=== PATIENT | male | born 1940 | race Two or more races ===

== ENCOUNTER 2017-04-26 21:52 | Inpatient (IN) | payer OTHER, MEDICAID ==
[~2017-04-26] VITALS: Ht 165.1 cm; Wt 71.0 kg
[2017-04-26 23:34] LABS: Basophils # (auto) 0 uL; Basophils % (auto) 0.2 % (0.0-2.0); Eosinophils # (auto) 0.2 uL; Eosinophils % (auto) 1.9 % (0.0-7.0); Hematocrit 44.6 % (41.0-53.0); Hemoglobin 15.3 g/dL (13.5-17.5); Lymphocytes # (auto) 1.5 uL; Lymphocytes % (auto) 18.2 % (10.0-50.0); Mean Corpuscular Hemoglobin 31.2 pg (28.0-32.0); Mean Corpuscular Hgb Conc. 34.3 g/dL (32.0-36.0); Mean Corpuscular Volume 90.9 fL (80.0-100.0); Monocytes # (auto) 0.5 uL; Monocytes % (auto) 6.5 % (0.0-12.0); Neutrophils % (auto) 73.2 % (37.0-80.0); Nucleated Red Blood Cells % 0.1 %; Platelet Count (auto) 192 10^3/uL (140-450); Red Blood Cells 4.91 10^6/uL (4.5-5.90); White Blood Cell 8.2 10^3/uL (4.4-10.8)
[2017-04-26 23:46] LABS: INR 1.05 (0.9-1.15); Partial Thromboplastin Time 26.8 sec (22.64-33.71); Prothrombin Time 11.5 sec (9.37-12.3)
[2017-04-27 00:03] LABS: Albumin 3.8 g/dL (3.4-5.0); BUN/Creatinine Ratio 20.9; Bilirubin, Total 0.4 mg/dL (0.2-1.0); Calcium 8.1 mg/dL (8.5-10.1); Potassium 3.9 mmol/L (3.5-5.1); Total Protein 7.9 g/dL (6.4-8.2)
[2017-04-27] MEDS ORDERED: ASPirin 81 mg TAB ONE (00:30)
[2017-04-27] MEDS ORDERED: ASPirin 81 mg TAB PO ONE (00:45)
[2017-04-27] MEDS ORDERED: ENOXAPARIN SOD 80 MG/0.8ML SYRINGE SC ONE (00:45)
[2017-04-27] MEDS ORDERED: HYDROcodone-ACET 5/325MG TAB PO PRN (05:15)
[2017-04-27] MEDS ORDERED: ACETAMINOPHEN 500 MG TAB PO PRN (05:15)
[2017-04-27] MEDS ORDERED: MORPHINE SULFATE 10 MG/ML INJ 1ML SDV IV PRN (05:15)
[2017-04-27 07:21] LABS: Basophils # (auto) 0 uL; Basophils % (auto) 0.3 % (0.0-2.0); Eosinophils # (auto) 0.2 uL; Eosinophils % (auto) 2.9 % (0.0-7.0); Hematocrit 42.2 % (41.0-53.0); Hemoglobin 14.8 g/dL (13.5-17.5); Lymphocytes # (auto) 1.9 uL; Lymphocytes % (auto) 27.1 % (10.0-50.0); Mean Corpuscular Hemoglobin 31.7 pg (28.0-32.0); Mean Corpuscular Volume 90.5 fL (80.0-100.0); Monocytes # (auto) 0.5 uL; Monocytes % (auto) 6.9 % (0.0-12.0); Neutrophils # (auto) 4.3 uL; Neutrophils % (auto) 62.8 % (37.0-80.0); Nucleated Red Blood Cells % 0.2 %; Platelet Count (auto) 143 10^3/uL (140-450); Red Blood Cells 4.67 10^6/uL (4.5-5.90); White Blood Cell 6.9 10^3/uL (4.4-10.8)
[2017-04-27 07:30] LABS: BUN/Creatinine Ratio 26.4; Calcium 8.4 mg/dL (8.5-10.1); Potassium 3.8 mmol/L (3.5-5.1)
[2017-04-27 07:33] LABS: Cholesterol 182 mg/dL (< 200); Creatine Kinase IFCC 430 U/L (39-308); HDL Cholesterol 44 mg/dL (40-59); LDL Cholesterol 127 mg/dL (< 100); Triglycerides 97 mg/dL (< 150)
[2017-04-27] MEDS: ASPirin-EC 81 mg tab PO SCH (10:00)
[2017-04-27] MEDS: METOPROLOL TARTRATE 25 MG TAB PO SCH ×2 (10:00→21:31)
[2017-04-27] MEDS ORDERED: SODIUM CHL 0.9% 50 ML ONE (10:34)
[2017-04-27] MEDS ORDERED: ANGIOMAX 250 MG VIAL IV ONE (10:34)
[2017-04-27] MEDS ORDERED: MIDAZOLAM HCL 1MG/1ML-2 ML VIAL ONE (10:34)
[2017-04-27] MEDS ORDERED: fentaNYL CITRATE 100 MCG/2 ML VL ONE (10:34)
[2017-04-27] MEDS ORDERED: LIDOCAINE 2%HCL (LOCAL ANESTH.) INJ 20ML MDV ONE (10:35)
[2017-04-27] MEDS ORDERED: IOHEXOL 350 MG/ML 100ML IJ ONE (10:50)
[2017-04-27] MEDS ORDERED: CLOPIDOGREL 300 MG TAB ONE (11:57)
[2017-04-27 13:40] VITALS: BP 125/73
[2017-04-27] MEDS ORDERED: TAMS0.4C36 PO (15:45)
[2017-04-27 16:47] VITALS: BP 112/61
[2017-04-27 16:55] LABS: Urine Bacteria NONE SEEN /hpf (None Seen); Urine Blood 1+ /uL (Negative); Urine WBC <1 /hpf (0 - 3)
[2017-04-27 17:08] LABS: Urine Specific Gravity > 1.050 (1.001-1.035)
[2017-04-27] MEDS ORDERED: TAMSULOSIN HYDROCHLORIDE 0.4 MG CAP PO SCH (18:00)
[2017-04-27 22:00] VITALS: BP 121/62
[2017-04-27] MEDS ORDERED: ATORVASTATIN 20 MG TAB PO SCH (22:00)
[2017-04-28 05:00] VITALS: BP 98/55
[2017-04-28 06:25] LABS: Basophils # (auto) 0 uL; Basophils % (auto) 0.1 % (0.0-2.0); Eosinophils # (auto) 0.1 uL; Eosinophils % (auto) 1.3 % (0.0-7.0); Hematocrit 41.7 % (41.0-53.0); Hemoglobin 14.4 g/dL (13.5-17.5); Lymphocytes # (auto) 1.6 uL; Lymphocytes % (auto) 18.8 % (10.0-50.0); Mean Corpuscular Hemoglobin 31.6 pg (28.0-32.0); Mean Corpuscular Hgb Conc. 34.6 g/dL (32.0-36.0); Mean Corpuscular Volume 91.3 fL (80.0-100.0); Monocytes # (auto) 0.7 uL; Monocytes % (auto) 8.3 % (0.0-12.0); Neutrophils # (auto) 6.3 uL; Neutrophils % (auto) 71.5 % (37.0-80.0); Platelet Count (auto) 156 10^3/uL (140-450); Red Blood Cells 4.57 10^6/uL (4.5-5.90); White Blood Cell 8.8 10^3/uL (4.4-10.8)
[2017-04-28 06:51] LABS: BUN/Creatinine Ratio 21.7; Calcium 8.5 mg/dL (8.5-10.1); Magnesium 2.3 mg/dL (1.6-2.6); Potassium 4.2 mmol/L (3.5-5.1)
[2017-04-28 09:00] VITALS: BP 98/56
[2017-04-28] MEDS: ASPirin-EC 81 mg tab PO SCH (09:33)
[2017-04-28] MEDS: METOPROLOL TARTRATE 25 MG TAB PO SCH (10:00)
[2017-04-28] MEDS ORDERED: CLOPIDOGREL BISULFATE 75 MG TAB PO SCH (10:00)
[2017-04-28] MEDS ORDERED: LISINOPRIL 5 MG TAB PO SCH (10:00)
[2017-04-28 13:00] VITALS: BP 99/58
== END 2017-04-28 15:25 | disposition home health service (06) | DRG 247 ==
LOC: ER 21:52 → TELE 21:53 → TELE-EAST 04-27 13:58
PROVIDERS: ADMIT Nurse Practitioner Family; ATTEND Internal Medicine
PROC: 4A023N7 Measurement of Cardiac Sampling and Pressure, Left Heart, Percutaneous Approach (ICD-10-PCS; principal; 2017-04-27)
PROC: 027035Z Dilation of Coronary Artery, One Artery with Two Drug-eluting Intraluminal Devices, Percutaneous Approach (ICD-10-PCS; 2017-04-27)
PROC: B2111ZZ Fluoroscopy of Multiple Coronary Arteries using Low Osmolar Contrast (ICD-10-PCS; 2017-04-27)
PROC: B2151ZZ Fluoroscopy of Left Heart using Low Osmolar Contrast (ICD-10-PCS; 2017-04-27)
DX: I21.4 Non-ST elevation (NSTEMI) myocardial infarction (principal); N17.9 Acute kidney failure, unspecified; D68.9 Coagulation defect, unspecified; N18.3 Chronic kidney disease, stage 3 (moderate); Q25.0 Patent ductus arteriosus; J98.11 Atelectasis; E78.5 Hyperlipidemia, unspecified; I12.9 Hypertensive chronic kidney disease with stage 1 through stage 4 chronic kidney disease, or unspecified chronic kidney disease; I25.10 Atherosclerotic heart disease of native coronary artery without angina pectoris; N40.0 Benign prostatic hyperplasia without lower urinary tract symptoms; Z82.49 Family history of ischemic heart disease and other diseases of the circulatory system; Z95.5 Presence of coronary angioplasty implant and graft
CPT/HCPCS: 36415; 71045; 80048; 80053; 80061; 81001; 82550; 83735; 83880; 84484; 85025; 85379; 85610; 85730; 92928; 93005; 93458; 96372; 99152; C1874; C1887; J2250

== ENCOUNTER 2020-06-11 07:02 | Inpatient (IN) | payer OTHER, MEDICAID ==
[~2020-06-11] VITALS: Ht 170.2 cm; Wt 73.5 kg
[~2020-06-11 07:02] MED LIST: ASPI-543 PO; ATO40T PO; FAMO40TA7 PO; LISI2.5T47 PO; METO25TA93 PO; NITR0.4S29 SL; OMEP-260 PO; TAMS0.4C36 PO
[2020-06-11] MEDS ORDERED: LIDOCAINE 2%HCL (LOCAL ANESTH.) INJ 20ML MDV ONE (07:42)
[2020-06-11] MEDS ORDERED: IODIXANOL 320MG/ML 100ML BTL IV ONE (07:43)
[2020-06-11] MEDS ORDERED: HEPARIN SODIUM (PORCINE) 5000 UNITS/ML 1ML VIAL ONE (08:33)
[2020-06-11] MEDS ORDERED: ANGIOMAX 250 MG VIAL IV ONE (08:33)
[2020-06-11] MEDS ORDERED: VERAPAMIL 2.5MG/ML INJ 2ML VIAL IV ONE (08:33)
[2020-06-11] MEDS ORDERED: fentaNYL CITRATE 100 MCG/2 ML VL ONE (08:34)
[2020-06-11] MEDS ORDERED: SODIUM CHL 0.9% 50 ML ONE (08:35)
[2020-06-11] MEDS ORDERED: MIDAZOLAM HCL 1MG/1ML-2 ML VIAL ONE (08:35)
[2020-06-11] MEDS ORDERED: ATROPINE SULF 1 MG/10ml SYR ONE (09:03)
[2020-06-11] MEDS ORDERED: TICAGRELOR 90 MG TAB ONE (09:35)
[2020-06-11] MEDS ORDERED: ASPirin 325 MG TAB ONE (09:39)
[2020-06-11] MEDS ORDERED: NITROGLYCERIN 0.4 MG SL TAB SL PRN (10:00)
[2020-06-11] MEDS ORDERED: ONDANSETRON HCL 4 MG/2 ML VIAL IV PRN (10:00)
[2020-06-11] MEDS ORDERED: ACETAMINOPHEN 500 MG TAB PO PRN (10:00)
[2020-06-11] MEDS ORDERED: MORPHINE SULF INJ 2 MG/ML SYRINGE 1ML IV PRN (10:00)
[2020-06-11 12:00] VITALS: BP 133/75
[2020-06-11] MEDS: SODIUM CHLOR 0.9% PF (SALINE LOCK) 10ML VIAL/SYR IV SCH ×2 (13:52→21:47)
[2020-06-11 16:00] VITALS: BP 119/71
[2020-06-11] MEDS ORDERED: CLOPIDOGREL 300 MG TAB PO ONE (20:45)
[2020-06-11 22:00] VITALS: BP 119/63
[2020-06-12 05:00] VITALS: BP 109/62
[2020-06-12] MEDS: SODIUM CHLOR 0.9% PF (SALINE LOCK) 10ML VIAL/SYR IV SCH (05:42)
[2020-06-12 08:46] VITALS: BP 132/71
[2020-06-12] MEDS ORDERED: ASPirin 81 mg TAB PO SCH (10:45)
[2020-06-12] MEDS ORDERED: CLOPIDOGREL BISULFATE 75 MG TAB PO SCH (10:45)
[2020-06-13] MEDS ORDERED: CLOPIDOGREL BISULFATE 75 MG TAB PO SCH (10:00)
[2020-06-13] MEDS ORDERED: ASPirin 81 mg TAB PO SCH (10:00)
== END 2020-06-12 13:05 | disposition home or self-care (01) | DRG 247 ==
LOC: CATH 07:02 → TELE 07:03 → TELE-WESTW 10:45
PROVIDERS: ADMIT Internal Medicine; ATTEND Internal Medicine
PROC: B2111ZZ Fluoroscopy of Multiple Coronary Arteries using Low Osmolar Contrast (ICD-10-PCS; principal; 2020-06-11)
PROC: 027034Z Dilation of Coronary Artery, One Artery with Drug-eluting Intraluminal Device, Percutaneous Approach (ICD-10-PCS; 2020-06-11)
PROC: 4A023N7 Measurement of Cardiac Sampling and Pressure, Left Heart, Percutaneous Approach (ICD-10-PCS; 2020-06-11)
DX: T82.897A Other specified complication of cardiac prosthetic devices, implants and grafts, initial encounter (principal); I25.119 Atherosclerotic heart disease of native coronary artery with unspecified angina pectoris; Z20.822 Contact with and (suspected) exposure to COVID-19; Y83.8 Other surgical procedures as the cause of abnormal reaction of the patient, or of later complication, without mention of misadventure at the time of the procedure; Y92.89 Other specified places as the place of occurrence of the external cause
CPT/HCPCS: 92928; 93458; 99152; 99153; C1874; C1887; G0378; J2250; Q9967

== ENCOUNTER 2022-11-24 14:05 | Emergency (ER) | payer OTHER, MEDICAID ==
[~2022-11-24] VITALS: Ht 170.2 cm; Wt 74.5 kg
[~2022-11-24 14:05] MED LIST changes: -OMEP-260 PO; +OMEP1CAP70 PO
[2022-11-24 18:37] VITALS: BP 145/51; PULSE 64; RESP 16; TEMP 97.7; O2SAT 98
[2022-11-24] MEDS ORDERED: cefTRIAXone SOD 1,000 MG VL IM ONE (20:00)
[2022-11-24] MEDS ORDERED: CEPH500C PO (20:03)
[2022-11-24] MEDS ORDERED: ACET500T58 PO (20:03)
[2022-11-24] MEDS ORDERED: ONDANSETRON ODT 4 MG TAB PO ONE (21:45)
[2022-11-24] MEDS ORDERED: HYDROcodone-ACET 5/325MG TAB PO ONE (21:45)
== END 2022-11-24 22:02 | disposition home or self-care (01) ==
LOC: ER 14:05
DX: S61.411A Laceration without foreign body of right hand, initial encounter (principal); K21.9 Gastro-esophageal reflux disease without esophagitis; E78.5 Hyperlipidemia, unspecified; W26.8XXA Contact with other sharp object(s), not elsewhere classified, initial encounter; Y93.89 Activity, other specified; Y92.89 Other specified places as the place of occurrence of the external cause; Y99.8 Other external cause status
CPT/HCPCS: 12002; 73130; 96372; 99283; J0696; Q0162